=== PATIENT | female | born 2000 | race Caucasian/White ===

== ENCOUNTER 2021-10-11 22:03 | Emergency (ER) | payer MEDICAID ==
[~2021-10-11] VITALS: Ht 165.1 cm; Wt 71.7 kg
--- NOTE | 2021-10-11 23:21 | NUR ---
BIBS C/O L FLANK PAIN RADIATING TO LEFT LOWER ABDOMEN X1DAY -N/V/D. PT A/OX4. TOLERATING R/A WELL WITH NO SOB; RESP EVEN AND NON LABORED. CONNECTED PT TO POX AND MONITOR. SAFETY MEASURES IN PLACE.
--- NOTE | 2021-10-11 23:27 | NUR ---
URINE COLLECTED AND SENT TO LAB
--- NOTE | 2021-10-11 23:29 | NUR ---
DR. CARIE CORRAL AT PT'S BEDSIDE
--- NOTE | 2021-10-11 23:49 | NUR ---
US TECH AT PT'S BEDSIDE
[2021-10-11 23:51] LABS: BILIRUBIN,URINE NEGATIVE (NEGATIVE); COLOR,URINE YELLOW (YELLOW); LEUKOCYTE ESTERASE ,URINE SMALL (NEGATIVE); NITRITE, URINE NEGATIVE (NEGATIVE); PH,URINE 7.5 (5.0-8.0); PROTEIN,URINE NEGATIVE (NEGATIVE); UGLUCOSE NEGATIVE (NEGATIVE); UROBILINOGEN,URINE 0.2 EU/dL (0.2)
--- NOTE | 2021-10-12 00:37 | NUR ---
Patient discharged to home in stable condition. Written and verbal after care instructions given. Patient verbalizes understanding of instruction. PT ambulatory with a steady gait
[2021-10-12 00:39] VITALS: BP 137/83
[2021-10-12 02:15] LABS: BACTERIA,URINE Rare /HPF (None Seen); RBC,URINE 0-2 /HPF (0-2); SQUAMOUS EPITHELIAL CELL,UR Few /HPF (None Seen)
== END 2021-10-12 00:40 | disposition home or self-care (01) ==
LOC: ER 22:08
DX: N83.202 Unspecified ovarian cyst, left side (principal); Z60.2 Problems related to living alone
CPT/HCPCS: 76856-TC; 81001; 84703-TC; 87086-TC